=== PATIENT | male | born 1960 | race Caucasian/White ===

== ENCOUNTER → 2016-11-08 | Outpatient (CLI) | payer BC ==
[~2016-11-08] MED LIST: CYAN500T13 PO
--- NOTE | 2016-11-08 16:44 | DIAGNOSTIC IMAGING REPORT ---
RIGHT ANKLE MIN 3 VIEWS ROUTINE CLINICAL HISTORY: Right ankle pain and swelling following injury. COMPARISON: None FINDINGS: Alignment of the right ankle is anatomic. There is marked lateral ankle soft tissue swelling. Irregularity along the syndesmosis suggests old injury. Talar dome is intact. A lucency is noted within the fibular tip. No additional fractures are identified on this exam. IMPRESSION: 1. Lucency within the fibular tip. This may reflect a nondisplaced acute fracture. 2. Marked lateral ankle soft tissue swelling. 3. No ankle mortise widening. Electronically signed by: Kolby Lincoln M.D. 11/08/2016 4:43 PM Dictated Date/Time: 11/08/2016 4:41 PM
== END | disposition home or self-care (01) ==
LOC: C.RADBC 15:55
PROVIDERS: ATTEND Internal Medicine
DX: M25.571 Pain in right ankle and joints of right foot (principal)